=== PATIENT | female | born 1945 | race Caucasian/White ===

== ENCOUNTER 2022-04-08 14:53 | Observation (INO) ==
[2022-04-08 15:38] LABS: ABS Basophils 0.1 10^3/ul (0-0.2); ABS Eosinophils 0.6 10^3/ul (0-0.6); ABS Lymphocytes 2.2 10^3/ul (1.0-4.8); ABS Monocytes 0.9 10^3/ul (0-0.8); ABS Neutrophils 5.4 10^3/ul (1.5-7.7); Eosinophil % 6.2 %; Hematocrit 35 % (35-47); Hemoglobin 11.5 g/dL (12.0-16.0); Lymphocyte % 23.5 %; Mean Corpuscular HGB Conc 33 g/dL (31-36); Mean Corpuscular Hemoglobin 29 pg (27-31); Mean Corpuscular Volume 88 fL (80-97); Mean Platelet Volume 8.6 fL (7.4-10.4); Platelet Count 269 10^3/uL (150-450); Red Blood Count 3.93 10^6 /uL (3.70-4.87); Red Cell Distribution Width 14 % (10-15); White Blood Count 9.2 10^3/uL (3.5-10.8)
[2022-04-08 15:56] LABS: Albumin/Globulin Ratio 1.2 (1-3); Calcium 9.2 mg/dL (8.6-10.3); Globulin 3.3 g/dL (2-4); Magnesium 2.1 mg/dL (1.9-2.7); Potassium 3.8 mmol/L (3.5-5.0); Total Bilirubin 0.4 mg/dL (0.2-1.0); Total Protein 7.3 g/dL (6.4-8.9); eGFR CKD-EPI 38.9 (>60)
[2022-04-08 16:08] LABS: TSH Ultra Thyroid Stim Horm 1.13 mcIU/mL (0.34-5.60)
[2022-04-08 17:22] LABS: High Sensitivity Troponin 1 Hr 5 pg/mL (<15)
[2022-04-08] MEDS ORDERED: NS 0.9% 1000 ml BAG 1,000 ML IV ONE (18:17)
[2022-04-08 19:04] LABS: Urine Appearance Clear; Urine Color Yellow
[2022-04-08 19:05] LABS: Urine Bilirubin Negative (Negative); Urine Blood Negative (Negative); Urine Glucose 2+ (500mg/dL) (Negative); Urine Ketones Negative (Negative); Urine Nitrite Negative (Negative); Urine Protein Negative (Negative); Urine Specific Gravity 1.015 (1.005-1.030); Urine Urobilinogen 0.2 (Negative) (Negative); Urine pH 5.5 (5.0-9.0)
[2022-04-08] MEDS ORDERED: Dextrose 50% Syringe 50 ml 25 GM/50 ML SYRINGE IV PUSH PRN (19:39)
[2022-04-08] MEDS ORDERED: Enoxaparin 40 MG/0.4 ML SYR SUBCUT SCH (20:00)
[2022-04-08 20:12] LABS: HDL Cholesterol 42.7 mg/dL
[2022-04-08] MEDS ORDERED: Insulin ISOPH/REG 70/30 SUBCUT SCH (21:00)
[2022-04-08 22:40] LABS: Urine Creatinine Concentration 55.63 mg/dL
[2022-04-09 05:39] LABS: Hematocrit 34 % (35-47); Hemoglobin 11.3 g/dL (12.0-16.0); Mean Corpuscular HGB Conc 33 g/dL (31-36); Mean Corpuscular Hemoglobin 29 pg (27-31); Mean Corpuscular Volume 89 fL (80-97); Mean Platelet Volume 8.8 fL (7.4-10.4); Platelet Count 267 10^3/uL (150-450); Red Blood Count 3.84 10^6 /uL (3.70-4.87); Red Cell Distribution Width 14 % (10-15); White Blood Count 7.4 10^3/uL (3.5-10.8)
[2022-04-09 05:56] LABS: Calcium 9.1 mg/dL (8.6-10.3); eGFR CKD-EPI 54.2 (>60)
[2022-04-09] MEDS ORDERED: Perflutren Lipid Microsphere 3 ML VIAL ONE (08:25)
[2022-04-09] MEDS ORDERED: Insulin ISOPH/REG 70/30 SUBCUT SCH ×3 (09:00→21:00)
[2022-04-09] MEDS: Empagliflozin 25 MG TAB PO SCH (12:34)
[2022-04-09] MEDS ORDERED: fentaNYL 100 mcg/2 ml 50 MCG/ML VIAL ONE (14:39)
[2022-04-09] MEDS ORDERED: Naloxone 0.4 mg VIAL 0.4 mg/ml 1 ml VIAL ONE (14:39)
[2022-04-09] MEDS ORDERED: Flumazenil 0.5 mg/5 ml 0.1 MG/ML 5 ml VIAL ONE (14:39)
[2022-04-09] MEDS ORDERED: Midazolam 5 mg/5 ml VIAL 1 mg/ml 5 ml VIAL (5 mg) ONE (14:39)
[2022-04-10 05:51] LABS: Hematocrit 33 % (35-47); Mean Corpuscular HGB Conc 33 g/dL (31-36); Mean Corpuscular Hemoglobin 29 pg (27-31); Mean Corpuscular Volume 88 fL (80-97); Mean Platelet Volume 8.4 fL (7.4-10.4); Platelet Count 261 10^3/uL (150-450); Red Blood Count 3.75 10^6 /uL (3.70-4.87); Red Cell Distribution Width 14 % (10-15); White Blood Count 7.7 10^3/uL (3.5-10.8)
[2022-04-10 06:20] LABS: Calcium 9.3 mg/dL (8.6-10.3); Magnesium 2.2 mg/dL (1.9-2.7); Potassium 4.4 mmol/L (3.5-5.0); eGFR CKD-EPI 51.8 (>60)
[2022-04-10] MEDS ORDERED: Heparin 2 UNITS/ML 1000 mls 2,000 ML IV ONE (10:27)
[2022-04-10] MEDS ORDERED: fentaNYL 100 mcg/2 ml 50 MCG/ML VIAL ONE (10:27)
[2022-04-10] MEDS ORDERED: Heparin 1,000 UNIT/ML 10 ml (10,000 UNITS) CATHLAB/DIALYSIS ONE (10:27)
[2022-04-10] MEDS ORDERED: Midazolam 5 mg/5 ml VIAL 1 mg/ml 5 ml VIAL (5 mg) ONE (10:27)
[2022-04-10] MEDS ORDERED: Iohexol 350 (CONTRAST) 100 ML PAK IV ONE (10:28)
[2022-04-10] MEDS ORDERED: nitroGLYCERIN DRIP 25,000 MCG/250 ML BTL ONE (10:28)
[2022-04-10] MEDS ORDERED: niCARdipine 0.1MG/ML IVPREMIX 20 MG/200 ML BAG IV ONE (10:28)
[2022-04-10] MEDS ORDERED: Lidocaine 1% MPF 5 ML VIAL ONE (10:28)
[2022-04-10] MEDS: Empagliflozin 25 MG TAB PO SCH (14:06)
[2022-04-10 15:54] VITALS: BP 150/66
== END 2022-04-10 16:09 | disposition home or self-care (01) ==
LOC: ED 14:53 → EDHOLD 14:53 → SUATTDRO 19:28 → MEDTELE 22:09
PROVIDERS: ADMIT Student in an Organized Health Care Education/Training Program; ATTEND Student in an Organized Health Care Education/Training Program